=== PATIENT | male | born 1955 | race Caucasian/White ===

== ENCOUNTER 2020-08-22 12:45 | Inpatient (IN) ==
[2020-08-22] MEDS ORDERED: NON-FORMULARY MEDICATION 1 EACH EACH (Vancomycin 1,500 MG/265 ML Iv.Soln) IVPB SCH (21:15)
[2020-08-22] MEDS ORDERED: (Diclofenac Sodium [Voltaren] 100 GM Gel..Gram.) TP PRN (21:18)
[2020-08-22] MEDS ORDERED: Famotidine 20 MG TABLET PO PRN (21:18)
[2020-08-23] MEDS: Metoprolol XL (24 HR) Succ 50 MG TAB.ER.24H PO SCH (08:10)
[2020-08-23] MEDS: Aspirin 81 MG TAB.CHEW PO SCH (08:10)
[2020-08-23] MEDS: *HR* Metformin 500 MG TABLET PO SCH ×2 (08:10→19:54)
[2020-08-23] MEDS: Spironolactone 25 MG TABLET PO SCH (08:11)
[2020-08-23] MEDS: Gabapentin 300 MG CAPSULE PO SCH ×3 (08:11→19:54)
[2020-08-23] MEDS ORDERED: Fluconazole 100 MG TABLET PO SCH (09:00)
[2020-08-23] MEDS ORDERED: Furosemide 20 MG TABLET PO SCH (09:00)
[2020-08-23] MEDS ORDERED: Vancomycin 1,500 MG/265 ML IV.SOLN IVPB SCH (09:00)
[2020-08-23] MEDS: *HR* Glimepiride 2 MG TABLET PO SCH (09:33)
[2020-08-23] MEDS: Vancomycin 1,500 MG/265 ML IV.SOLN IVPB SCH (11:42)
[2020-08-23] MEDS ORDERED: hydrALAZINE 25 MG TABLET PO PRN (16:43)
[2020-08-24] MEDS: Gabapentin 300 MG CAPSULE PO SCH ×3 (07:42→20:23)
[2020-08-24] MEDS: *HR* Glimepiride 2 MG TABLET PO SCH (07:42)
[2020-08-24] MEDS: Spironolactone 25 MG TABLET PO SCH (07:42)
[2020-08-24] MEDS: *HR* Metformin 500 MG TABLET PO SCH ×2 (07:43→20:23)
[2020-08-24] MEDS: Metoprolol XL (24 HR) Succ 50 MG TAB.ER.24H PO SCH (07:43)
[2020-08-24] MEDS: Aspirin 81 MG TAB.CHEW PO SCH (07:43)
[2020-08-24 10:07] LABS: Hematocrit 42.4 % (37.5-50.1); Mean Corpuscular Hemoglobin 31.8 pg (28.0-33.3); Mean Corpuscular Volume 96.4 fL (83.0-100.0); Mean Platelet Volume 13.4 fL (9.4-12.4); Platelet Count 104 K/mcL (140-400); Red Cell Distribution Width 20.2 % (11.5-14.5); White Blood Count 9.5 K/mcL (4.3-11.1)
[2020-08-24 10:23] LABS: BUN/Creatinine Ratio 21 (6-26); Bilirubin,Direct 1.1 mg/dL (0.0-0.2); Bilirubin,Total 2.1 mg/dL (0.3-1.0); Blood Urea Nitrogen 30 mg/dL (8-23); Carbon Dioxide 19 mEq/L (23-29); Chloride 108 mEq/L (98-107); Globulin 3.1 g/dL (2.4-3.5); Glucose 155 mg/dL (70-105); Osmolality,Calculated 295 (280-300); Potassium 3.5 mEq/L (3.5-5.1); Sodium 138 mEq/L (136-145); Total Protein 6.1 g/dL (6.4-8.9); eGFR For African Americans > 60 (> 60); eGFR For Non-African Americans 50 (> 60)
[2020-08-24] MEDS: Vancomycin 1,500 MG/265 ML IV.SOLN IVPB SCH (11:00)
[2020-08-25] MEDS: *HR* Metformin 500 MG TABLET PO SCH ×2 (08:55→20:30)
[2020-08-25] MEDS: Aspirin 81 MG TAB.CHEW PO SCH (08:56)
[2020-08-25] MEDS: *HR* Glimepiride 2 MG TABLET PO SCH (08:56)
[2020-08-25] MEDS: Gabapentin 300 MG CAPSULE PO SCH ×3 (08:56→20:30)
[2020-08-25] MEDS: Metoprolol XL (24 HR) Succ 50 MG TAB.ER.24H PO SCH (08:56)
[2020-08-25] MEDS: Spironolactone 25 MG TABLET PO SCH (08:56)
[2020-08-25] MEDS: Vancomycin 1,500 MG/265 ML IV.SOLN IVPB SCH (11:41)
[2020-08-26] MEDS: Spironolactone 25 MG TABLET PO SCH (08:53)
[2020-08-26] MEDS: *HR* Glimepiride 2 MG TABLET PO SCH (08:53)
[2020-08-26] MEDS: *HR* Metformin 500 MG TABLET PO SCH ×2 (08:53→21:06)
[2020-08-26] MEDS: Aspirin 81 MG TAB.CHEW PO SCH (08:53)
[2020-08-26] MEDS: Metoprolol XL (24 HR) Succ 50 MG TAB.ER.24H PO SCH (08:53)
[2020-08-26] MEDS: Gabapentin 300 MG CAPSULE PO SCH ×3 (08:53→21:06)
[2020-08-26 09:57] LABS: BUN/Creatinine Ratio 15 (6-26); Blood Urea Nitrogen 18 mg/dL (8-23); Calcium 7.9 mg/dL (8.6-10.3); Carbon Dioxide 27 mEq/L (23-29); Chloride 106 mEq/L (98-107); Glucose 127 mg/dL (70-105); Osmolality,Calculated 297 (280-300); Sodium 142 mEq/L (136-145); eGFR For African Americans > 60 (> 60); eGFR For Non-African Americans > 60 (> 60)
[2020-08-26 10:35] LABS: Platelet Estimate Decreased (Normal)
[2020-08-26 10:36] LABS: Hematocrit 42.1 % (37.5-50.1); Hemoglobin 13.9 g/dL (12.9-16.9); Mean Corpuscular Hemoglobin 31.5 pg (28.0-33.3); Mean Corpuscular Volume 95.5 fL (83.0-100.0); Red Blood Count 4.41 M/mcL (4.19-5.50); White Blood Count 6.7 K/mcL (4.3-11.1)
[2020-08-26 10:37] LABS: Mean Platelet Volume 13.1 fL (9.4-12.4); Platelet Count 81 K/mcL (140-400); Red Cell Distribution Width 19.8 % (11.5-14.5)
[2020-08-26 10:38] LABS: Basophils % 0.4 %; Eosinophils # 0.4 K/mcL (0.0-0.6); Eosinophils % 6.3 %; Immature Granulocytes % 0.7 % (0-4); Lymphocytes # 0.8 K/mcL (0.6-4.6); Lymphocytes % 11.5 %; Monocytes # 0.5 K/mcL (0.0-1.3); Segmented Neutrophils % 74.1 %
[2020-08-26] MEDS: Vancomycin 1,500 MG/265 ML IV.SOLN IVPB SCH (12:03)
[2020-08-27] MEDS: Spironolactone 25 MG TABLET PO SCH (08:22)
[2020-08-27] MEDS: *HR* Metformin 500 MG TABLET PO SCH ×2 (08:22→15:02)
[2020-08-27] MEDS: *HR* Glimepiride 4 MG TABLET PO SCH (08:22)
[2020-08-27] MEDS: Metoprolol XL (24 HR) Succ 50 MG TAB.ER.24H PO SCH (08:23)
[2020-08-27] MEDS: Gabapentin 300 MG CAPSULE PO SCH ×3 (08:23→20:42)
[2020-08-27] MEDS: Aspirin 81 MG TAB.CHEW PO SCH (08:23)
[2020-08-27] MEDS: Vancomycin 1,500 MG/265 ML IV.SOLN IVPB SCH (10:39)
[2020-08-27] MEDS: Acetaminophen 325 MG TABLET PO PRN (22:15)
[2020-08-27] MEDS: Melatonin 3 MG TABLET PO PRN (22:46)
[2020-08-28] MEDS: *HR* Metformin 500 MG TABLET PO SCH ×2 (07:47→16:47)
[2020-08-28] MEDS: Spironolactone 25 MG TABLET PO SCH (08:17)
[2020-08-28] MEDS: Aspirin 81 MG TAB.CHEW PO SCH (08:17)
[2020-08-28] MEDS: Acetaminophen 325 MG TABLET PO PRN (08:18)
[2020-08-28] MEDS: *HR* Glimepiride 4 MG TABLET PO SCH (08:18)
[2020-08-28] MEDS: Gabapentin 300 MG CAPSULE PO SCH ×3 (08:18→20:33)
[2020-08-28] MEDS: Metoprolol XL (24 HR) Succ 50 MG TAB.ER.24H PO SCH (08:19)
[2020-08-28] MEDS: Vancomycin 1,500 MG/265 ML IV.SOLN IVPB SCH (10:44)
[2020-08-28] MEDS ORDERED: Sennosides/Docusate Sodium TABLET PO PRN (13:45)
[2020-08-28] MEDS: Melatonin 3 MG TABLET PO PRN (20:33)
[2020-08-29] MEDS: *HR* Metformin 500 MG TABLET PO SCH ×2 (07:30→16:07)
[2020-08-29] MEDS: Metoprolol XL (24 HR) Succ 50 MG TAB.ER.24H PO SCH (07:30)
[2020-08-29] MEDS: Gabapentin 300 MG CAPSULE PO SCH ×3 (07:30→20:04)
[2020-08-29] MEDS: Spironolactone 25 MG TABLET PO SCH (07:30)
[2020-08-29] MEDS: Aspirin 81 MG TAB.CHEW PO SCH (07:30)
[2020-08-29] MEDS: *HR* Glimepiride 4 MG TABLET PO SCH (07:30)
[2020-08-29] MEDS: Vancomycin 1,500 MG/265 ML IV.SOLN IVPB SCH (11:25)
[2020-08-29] MEDS: Acetaminophen 325 MG TABLET PO PRN (20:03)
[2020-08-30] MEDS: *HR* Metformin 500 MG TABLET PO SCH ×2 (08:16→16:18)
[2020-08-30] MEDS: *HR* Glimepiride 4 MG TABLET PO SCH (08:16)
[2020-08-30] MEDS: Spironolactone 25 MG TABLET PO SCH (08:17)
[2020-08-30] MEDS: Aspirin 81 MG TAB.CHEW PO SCH (08:17)
[2020-08-30] MEDS: Gabapentin 300 MG CAPSULE PO SCH ×3 (08:17→19:53)
[2020-08-30] MEDS: Metoprolol XL (24 HR) Succ 50 MG TAB.ER.24H PO SCH (08:17)
[2020-08-30] MEDS: Vancomycin 1,500 MG/265 ML IV.SOLN IVPB SCH (11:07)
[2020-08-31] MEDS: Metoprolol XL (24 HR) Succ 50 MG TAB.ER.24H PO SCH (09:34)
[2020-08-31] MEDS: *HR* Glimepiride 4 MG TABLET PO SCH (09:35)
[2020-08-31] MEDS: Aspirin 81 MG TAB.CHEW PO SCH (09:35)
[2020-08-31] MEDS: *HR* Metformin 500 MG TABLET PO SCH ×2 (09:35→16:29)
[2020-08-31] MEDS: Spironolactone 25 MG TABLET PO SCH (09:36)
[2020-08-31] MEDS: Gabapentin 300 MG CAPSULE PO SCH ×3 (09:36→20:20)
[2020-08-31] MEDS: Vancomycin 1,500 MG/265 ML IV.SOLN IVPB SCH (12:10)
[2020-09-01] MEDS: *HR* Metformin 500 MG TABLET PO SCH ×2 (07:57→17:25)
[2020-09-01] MEDS: Aspirin 81 MG TAB.CHEW PO SCH (07:57)
[2020-09-01] MEDS: Metoprolol XL (24 HR) Succ 50 MG TAB.ER.24H PO SCH (07:57)
[2020-09-01] MEDS: Spironolactone 25 MG TABLET PO SCH (07:57)
[2020-09-01] MEDS: *HR* Glimepiride 4 MG TABLET PO SCH (07:57)
[2020-09-01] MEDS: Gabapentin 300 MG CAPSULE PO SCH ×3 (07:58→20:56)
[2020-09-01] MEDS: Vancomycin 1,500 MG/265 ML IV.SOLN IVPB SCH (12:02)
[2020-09-01] MEDS: Acetaminophen 325 MG TABLET PO PRN (14:22)
[2020-09-02] MEDS: Metoprolol XL (24 HR) Succ 50 MG TAB.ER.24H PO SCH (07:54)
[2020-09-02] MEDS: *HR* Metformin 500 MG TABLET PO SCH ×2 (07:54→15:40)
[2020-09-02] MEDS: Gabapentin 300 MG CAPSULE PO SCH ×3 (07:55→22:09)
[2020-09-02] MEDS: Spironolactone 25 MG TABLET PO SCH (07:55)
[2020-09-02] MEDS: *HR* Glimepiride 4 MG TABLET PO SCH (07:55)
[2020-09-02] MEDS: Aspirin 81 MG TAB.CHEW PO SCH (07:55)
[2020-09-03 07:23] LABS: BUN/Creatinine Ratio 20 (6-26); Blood Urea Nitrogen 23 mg/dL (8-23); eGFR For African Americans > 60 (> 60); eGFR For Non-African Americans > 60 (> 60)
[2020-09-03] MEDS: Metoprolol XL (24 HR) Succ 50 MG TAB.ER.24H PO SCH (08:40)
[2020-09-03] MEDS: Spironolactone 25 MG TABLET PO SCH (08:40)
[2020-09-03] MEDS: Gabapentin 300 MG CAPSULE PO SCH ×3 (08:41→21:03)
[2020-09-03] MEDS: *HR* Metformin 500 MG TABLET PO SCH ×2 (08:41→15:58)
[2020-09-03] MEDS: *HR* Glimepiride 4 MG TABLET PO SCH (08:41)
[2020-09-03] MEDS: Aspirin 81 MG TAB.CHEW PO SCH (08:41)
[2020-09-03 15:47] LABS: Basophils # 0.1 K/mcL (0.0-0.2); Eosinophils # 0.5 K/mcL (0.0-0.6); Eosinophils % 10.9 %; Hematocrit 36.1 % (37.5-50.1); Hemoglobin 11.7 g/dL (12.9-16.9); Immature Granulocytes % 0.4 % (0-4); Lymphocytes # 1.1 K/mcL (0.6-4.6); Lymphocytes % 23.5 %; Mean Corpuscular HGB Conc 32.4 g/dL (31.6-35.5); Mean Corpuscular Hemoglobin 31.6 pg (28.0-33.3); Mean Corpuscular Volume 97.6 fL (83.0-100.0); Mean Platelet Volume 10.8 fL (9.4-12.4); Monocytes # 0.7 K/mcL (0.0-1.3); Monocytes % 13.6 %; Neutrophils # 2.5 K/mcL (1.6-8.9); Platelet Count 215 K/mcL (140-400); Red Cell Distribution Width 18.2 % (11.5-14.5); Segmented Neutrophils % 50.6 %; White Blood Count 4.9 K/mcL (4.3-11.1)
[2020-09-03] MEDS: Vancomycin 1,250 MG/262.5 ML IV.SOLN IVPB SCH (15:57)
[2020-09-03] MEDS: Melatonin 3 MG TABLET PO PRN (21:03)
[2020-09-03] MEDS: Acetaminophen 325 MG TABLET PO PRN (23:03)
[2020-09-04 08:35] LABS: Basophils # 0.1 K/mcL (0.0-0.2); Basophils % 1.1 %; Eosinophils # 0.5 K/mcL (0.0-0.6); Hematocrit 36.6 % (37.5-50.1); Hemoglobin 11.7 g/dL (12.9-16.9); Immature Granulocytes % 0.7 % (0-4); Lymphocytes # 1.3 K/mcL (0.6-4.6); Lymphocytes % 28.4 %; Mean Corpuscular Hemoglobin 31.3 pg (28.0-33.3); Mean Corpuscular Volume 97.9 fL (83.0-100.0); Mean Platelet Volume 11.1 fL (9.4-12.4); Monocytes # 0.5 K/mcL (0.0-1.3); Monocytes % 11.8 %; Neutrophils # 2.2 K/mcL (1.6-8.9); Platelet Count 210 K/mcL (140-400); Red Blood Count 3.74 M/mcL (4.19-5.50); White Blood Count 4.5 K/mcL (4.3-11.1)
[2020-09-04 08:55] LABS: Alanine Aminotransferase 18 Units/L (7-52); Albumin 3.4 g/dL (3.5-5.7); Alkaline Phosphatase 117 Units/L (34-104); Aspartate Amino Transferase 24 Units/L (13-39); BUN/Creatinine Ratio 22 (6-26); Bilirubin,Total 1.6 mg/dL (0.3-1.0); Blood Urea Nitrogen 25 mg/dL (8-23); Calcium 7.9 mg/dL (8.6-10.3); Carbon Dioxide 31 mEq/L (23-29); Chloride 94 mEq/L (98-107); Glucose 93 mg/dL (70-105); Osmolality,Calculated 292 (280-300); Potassium 3.1 mEq/L (3.5-5.1); Sodium 139 mEq/L (136-145); eGFR For African Americans > 60 (> 60); eGFR For Non-African Americans > 60 (> 60)
[2020-09-04 09:03] LABS: Albumin/Globulin Ratio 1.1 (1.1-2.2); Globulin 3.1 g/dL (2.4-3.5); Total Protein 6.5 g/dL (6.4-8.9)
[2020-09-04] MEDS: *HR* Metformin 500 MG TABLET PO SCH ×2 (10:21→17:08)
[2020-09-04] MEDS: Spironolactone 25 MG TABLET PO SCH (10:21)
[2020-09-04] MEDS: Aspirin 81 MG TAB.CHEW PO SCH (10:22)
[2020-09-04] MEDS: Gabapentin 300 MG CAPSULE PO SCH ×3 (10:22→20:06)
[2020-09-04] MEDS: Metoprolol XL (24 HR) Succ 50 MG TAB.ER.24H PO SCH (10:22)
[2020-09-04] MEDS: *HR* Glimepiride 4 MG TABLET PO SCH ×2 (10:23→12:04)
[2020-09-04] MEDS: Vancomycin 1,250 MG/262.5 ML IV.SOLN IVPB SCH (14:56)
[2020-09-04] MEDS: Melatonin 3 MG TABLET PO PRN (22:12)
[2020-09-05] MEDS: *HR* Metformin 500 MG TABLET PO SCH ×2 (08:33→15:15)
[2020-09-05] MEDS: Metoprolol XL (24 HR) Succ 50 MG TAB.ER.24H PO SCH (08:33)
[2020-09-05] MEDS: Gabapentin 300 MG CAPSULE PO SCH ×3 (08:33→20:35)
[2020-09-05] MEDS: *HR* Glimepiride 4 MG TABLET PO SCH (08:34)
[2020-09-05] MEDS: Aspirin 81 MG TAB.CHEW PO SCH (08:34)
[2020-09-05] MEDS: Spironolactone 25 MG TABLET PO SCH (08:34)
[2020-09-05] MEDS ORDERED: Spironolactone 25 MG TABLET PO ONE (10:17)
[2020-09-05] MEDS ORDERED: Furosemide 20 MG/2 ML VIAL IVP ONE (10:17)
[2020-09-05] MEDS ORDERED: Albuterol 2.5 MG/3 ML NEBULIZER IH ONE (10:19)
[2020-09-05] MEDS: Vancomycin 1,250 MG/262.5 ML IV.SOLN IVPB SCH (15:14)
[2020-09-05] MEDS: Insulin LISPRO 300 UNITS/3 ML VIAL SUBQ SCH (17:52)
[2020-09-05] MEDS: Melatonin 3 MG TABLET PO PRN (20:35)
[2020-09-05] MEDS: Acetaminophen 325 MG TABLET PO PRN (20:37)
[2020-09-05] MEDS ORDERED: Insulin LISPRO 300 UNITS/3 ML VIAL SUBQ SCH (21:00)
[2020-09-06] MEDS: Insulin LISPRO 300 UNITS/3 ML VIAL SUBQ SCH ×4 (07:41→16:37)
[2020-09-06] MEDS ORDERED: D5% in Water 1,000 ML IVC PRN (07:58)
[2020-09-06] MEDS ORDERED: Dextrose Gel 15 GM/37.5 ML TUBE PO PRN ×2 (07:58)
[2020-09-06] MEDS ORDERED: *HR* Dextrose 50 % in Water (Vial) 50 ML VIAL IVP PRN (07:58)
[2020-09-06] MEDS ORDERED: Dextrose Gel 15 GM/37.5 ML TUBE PO ONE (08:01)
[2020-09-06] MEDS: Gabapentin 300 MG CAPSULE PO SCH ×3 (08:50→15:23)
[2020-09-06] MEDS: *HR* Metformin 500 MG TABLET PO SCH ×2 (08:51→15:39)
[2020-09-06] MEDS: Metoprolol XL (24 HR) Succ 50 MG TAB.ER.24H PO SCH (08:51)
[2020-09-06] MEDS: *HR* Glimepiride 4 MG TABLET PO SCH (08:51)
[2020-09-06] MEDS: Aspirin 81 MG TAB.CHEW PO SCH (08:51)
[2020-09-06] MEDS ORDERED: Isovue-370 500 ML BOTTLE IVP ONE (11:37)
[2020-09-06] MEDS ORDERED: Furosemide 40 MG/4 ML VIAL IVP ONE (11:39)
[2020-09-06 12:12] LABS: Basophils # 0.1 K/mcL (0.0-0.2); Eosinophils # 0.1 K/mcL (0.0-0.6); Eosinophils % 2.8 %; Hematocrit 36.6 % (37.5-50.1); Immature Granulocytes % 0.6 % (0-4); Lymphocytes # 1.1 K/mcL (0.6-4.6); Lymphocytes % 21.5 %; Mean Corpuscular HGB Conc 32.8 g/dL (31.6-35.5); Mean Corpuscular Hemoglobin 31.9 pg (28.0-33.3); Mean Corpuscular Volume 97.3 fL (83.0-100.0); Mean Platelet Volume 11.1 fL (9.4-12.4); Monocytes # 0.5 K/mcL (0.0-1.3); Monocytes % 9.5 %; Neutrophils # 3.2 K/mcL (1.6-8.9); Platelet Count 271 K/mcL (140-400); Red Blood Count 3.76 M/mcL (4.19-5.50); Red Cell Distribution Width 17.9 % (11.5-14.5); Segmented Neutrophils % 64.6 %
[2020-09-06 12:46] LABS: Albumin 3.5 g/dL (3.5-5.7); Bilirubin,Direct 0.8 mg/dL (0.0-0.2); Bilirubin,Indirect 0.8 mg/dL (0.0-1.0); Bilirubin,Total 1.6 mg/dL (0.3-1.0); Globulin 3.4 g/dL (2.4-3.5); Total Protein 6.9 g/dL (6.4-8.9)
[2020-09-06 12:48] LABS: Potassium 3.9 mEq/L (3.5-5.1)
[2020-09-06 13:52] LABS: INR 1.7; Prothrombin Time 19.4 Seconds (9.4-12.1)
[2020-09-06] MEDS ORDERED: *HR* Heparin 5,000 UNIT/ML VIAL IVP PRN ×2 (14:09)
[2020-09-06] MEDS ORDERED: *HR* Heparin 5,000 UNIT/ML VIAL IVP ONE (14:09)
[2020-09-06] MEDS ORDERED: Heparin 25,000UNIT/250ML 1/2NS 25,000 UNIT/250 ML IV.SOLN IVC SCH (14:15)
[2020-09-06 14:32] VITALS: BP 102/70
[2020-09-06] MEDS: Vancomycin 1,250 MG/262.5 ML IV.SOLN IVPB SCH (15:24)
[2020-09-06 15:29] LABS: Hematocrit 34.6 % (37.5-50.1); Hemoglobin 11.4 g/dL (12.9-16.9); Mean Corpuscular HGB Conc 32.9 g/dL (31.6-35.5); Mean Corpuscular Hemoglobin 32.3 pg (28.0-33.3); Platelet Count 266 K/mcL (140-400); Red Blood Count 3.53 M/mcL (4.19-5.50); Red Cell Distribution Width 18.2 % (11.5-14.5); White Blood Count 6.1 K/mcL (4.3-11.1)
[2020-09-06 15:44] LABS: Heparin anti-factor XA UFH < 0.04 IU/mL (0.30-0.70); INR 1.7; Prothrombin Time 19.2 Seconds (9.4-12.1)
[2020-09-07] MEDS ORDERED: Spironolactone 25 MG TABLET PO SCH (09:00)
[2020-09-07] MEDS ORDERED: Furosemide 20 MG TABLET PO SCH (09:00)
== END 2020-09-06 17:32 | disposition short-term general hospital (02) | DRG 291 ==
LOC: INPPIK 18:21
PROVIDERS: ADMIT Family Medicine; ATTEND Family Medicine

== ENCOUNTER 2021-02-25 17:34 | Inpatient (IN) ==
[2021-02-25] MEDS ORDERED: DAPTOMYCIN 350 MG IV SCH (17:45)
[2021-02-25] MEDS ORDERED: *HR* Dextrose 50 % in Water (Syg) 50 ML SYRINGE IVP PRN (17:47)
[2021-02-25] MEDS ORDERED: Dextrose Gel 15 GM/37.5 ML TUBE PO PRN ×2 (17:47)
[2021-02-25] MEDS ORDERED: D5% in Water 1,000 ML IVC PRN (17:47)
[2021-02-25] MEDS: Insulin LISPRO 300 UNITS/3 ML VIAL SUBQ SCH (23:27)
[2021-02-25] MEDS: Gabapentin 300 MG CAPSULE PO SCH (23:33)
[2021-02-26 08:04] LABS: Basophils % 0.3 %; Eosinophils # 0.3 K/mcL (0.0-0.6); Eosinophils % 2.4 %; Hematocrit 26.1 % (37.5-50.1); Immature Granulocytes % 1.8 % (0-4); Lymphocytes # 0.9 K/mcL (0.6-4.6); Mean Corpuscular HGB Conc 30.7 g/dL (31.6-35.5); Mean Corpuscular Hemoglobin 29.2 pg (28.0-33.3); Mean Corpuscular Volume 95.3 fL (83.0-100.0); Mean Platelet Volume 9.2 fL (9.4-12.4); Monocytes # 0.5 K/mcL (0.0-1.3); Monocytes % 3.9 %; Platelet Count 384 K/mcL (140-400); Red Blood Count 2.74 M/mcL (4.19-5.50); Red Cell Distribution Width 15.4 % (11.5-14.5); Segmented Neutrophils % 84.6 %; White Blood Count 12.7 K/mcL (4.3-11.1)
[2021-02-26] MEDS ORDERED: Famotidine 20 MG TABLET PO PRN (09:00)
[2021-02-26 09:15] LABS: BUN/Creatinine Ratio 13 (6-26); Blood Urea Nitrogen 16 mg/dL (8-23); Carbon Dioxide 23 mEq/L (23-29); Chloride 103 mEq/L (98-107); Glucose 138 mg/dL (70-105); Osmolality,Calculated 281 (280-300); Potassium 4.2 mEq/L (3.5-5.1); Sodium 134 mEq/L (136-145); eGFR For African Americans > 60 (> 60); eGFR For Non-African Americans > 60 (> 60)
[2021-02-26 09:16] LABS: Neutrophils # 10.7 K/mcL (1.6-8.9)
[2021-02-26] MEDS: Insulin LISPRO 300 UNITS/3 ML VIAL SUBQ SCH ×4 (09:20→20:38)
[2021-02-26] MEDS: *HR* Glimepiride 4 MG TABLET PO SCH (10:49)
[2021-02-26] MEDS: Furosemide 40 MG TABLET PO SCH ×2 (10:49→17:22)
[2021-02-26] MEDS: Metoprolol XL (24 HR) Succ 50 MG TAB.ER.24H PO SCH (10:49)
[2021-02-26] MEDS: Spironolactone 25 MG TABLET PO SCH (10:49)
[2021-02-26] MEDS: Gabapentin 300 MG CAPSULE PO SCH ×3 (10:49→20:39)
[2021-02-26] MEDS: Aspirin Enteric Coated 81 MG Tablet PO SCH (10:49)
[2021-02-26] MEDS: Ascorbic Acid 500 MG TABLET PO SCH (10:49)
[2021-02-26] MEDS: DAPTOmycin 700 MG in 0.9 % Sodium Chloride 100 ML IVPB SCH (11:06)
[2021-02-26] MEDS: *HR* OxyCODONE/APAP 10/325 TABLET PO PRN (17:36)
[2021-02-26] MEDS: Lactulose Oral Soln 20 GM/30 ML UDC PO SCH (20:39)
[2021-02-27] MEDS: *HR* OxyCODONE/APAP 10/325 TABLET PO PRN ×2 (01:16→10:37)
[2021-02-27] MEDS: *HR* Enoxaparin 40 MG/0.4 ML SYRINGE SQ SCH (05:45)
[2021-02-27 07:51] LABS: INR 1.5; Prothrombin Time 17.3 Seconds (9.4-12.1)
[2021-02-27] MEDS: Insulin LISPRO 300 UNITS/3 ML VIAL SUBQ SCH ×4 (08:24→20:19)
[2021-02-27] MEDS: *HR* Glimepiride 4 MG TABLET PO SCH (08:35)
[2021-02-27] MEDS: Lactulose Oral Soln 20 GM/30 ML UDC PO SCH ×2 (08:35→20:19)
[2021-02-27] MEDS: Aspirin Enteric Coated 81 MG Tablet PO SCH (08:35)
[2021-02-27] MEDS: Furosemide 40 MG TABLET PO SCH ×2 (08:35→17:11)
[2021-02-27] MEDS: Spironolactone 25 MG TABLET PO SCH (08:35)
[2021-02-27] MEDS: Gabapentin 300 MG CAPSULE PO SCH ×3 (08:36→20:19)
[2021-02-27] MEDS: Metoprolol XL (24 HR) Succ 50 MG TAB.ER.24H PO SCH (08:36)
[2021-02-27] MEDS: Ascorbic Acid 500 MG TABLET PO SCH (08:37)
[2021-02-27 08:38] LABS: Alanine Aminotransferase 13 Units/L (7-52); Albumin 2.5 g/dL (3.5-5.7); Albumin/Globulin Ratio 0.7 (1.1-2.2); Alkaline Phosphatase 100 Units/L (34-104); Aspartate Amino Transferase 22 Units/L (13-39); BUN/Creatinine Ratio 12 (6-26); Bilirubin,Total 0.4 mg/dL (0.3-1.0); Blood Urea Nitrogen 16 mg/dL (8-23); Carbon Dioxide 25 mEq/L (23-29); Chloride 104 mEq/L (98-107); Globulin 3.7 g/dL (2.4-3.5); Glucose 74 mg/dL (70-105); Osmolality,Calculated 284 (280-300); Potassium 3.7 mEq/L (3.5-5.1); Sodium 137 mEq/L (136-145); Total Protein 6.2 g/dL (6.4-8.9); eGFR For African Americans > 60 (> 60); eGFR For Non-African Americans 55 (> 60)
[2021-02-27] MEDS: DAPTOmycin 700 MG in 0.9 % Sodium Chloride 100 ML IVPB SCH (10:13)
[2021-02-28] MEDS: *HR* Enoxaparin 40 MG/0.4 ML SYRINGE SQ SCH (05:21)
[2021-02-28] MEDS: Insulin LISPRO 300 UNITS/3 ML VIAL SUBQ SCH ×4 (07:54→21:01)
[2021-02-28] MEDS: Lactulose Oral Soln 20 GM/30 ML UDC PO SCH ×2 (08:06→19:59)
[2021-02-28] MEDS: Ascorbic Acid 500 MG TABLET PO SCH (08:07)
[2021-02-28] MEDS: *HR* Glimepiride 4 MG TABLET PO SCH (08:07)
[2021-02-28] MEDS: Spironolactone 25 MG TABLET PO SCH (08:07)
[2021-02-28] MEDS: Furosemide 40 MG TABLET PO SCH ×2 (08:07→15:56)
[2021-02-28] MEDS: Aspirin Enteric Coated 81 MG Tablet PO SCH (08:08)
[2021-02-28] MEDS: Metoprolol XL (24 HR) Succ 50 MG TAB.ER.24H PO SCH (08:08)
[2021-02-28] MEDS: Gabapentin 300 MG CAPSULE PO SCH ×3 (08:08→19:59)
[2021-02-28] MEDS: DAPTOmycin 700 MG in 0.9 % Sodium Chloride 100 ML IVPB SCH (10:20)
[2021-02-28] MEDS: *HR* OxyCODONE/APAP 10/325 TABLET PO PRN (10:36)
[2021-02-28] MEDS: predniSONE 20 MG TABLET PO SCH (10:36)
[2021-03-01] MEDS: *HR* Enoxaparin 40 MG/0.4 ML SYRINGE SQ SCH (04:57)
[2021-03-01 07:46] LABS: Hematocrit 25.8 % (37.5-50.1); Hemoglobin 8.1 g/dL (12.9-16.9); Mean Corpuscular HGB Conc 31.4 g/dL (31.6-35.5); Mean Corpuscular Hemoglobin 28.9 pg (28.0-33.3); Mean Corpuscular Volume 92.1 fL (83.0-100.0); Platelet Count 469 K/mcL (140-400); White Blood Count 9.2 K/mcL (4.3-11.1)
[2021-03-01 08:15] LABS: BUN/Creatinine Ratio 14 (6-26); Blood Urea Nitrogen 20 mg/dL (8-23); Calcium 8.1 mg/dL (8.6-10.3); Carbon Dioxide 27 mEq/L (23-29); Chloride 103 mEq/L (98-107); Glucose 116 mg/dL (70-105); Osmolality,Calculated 290 (280-300); Potassium 3.7 mEq/L (3.5-5.1); Sodium 138 mEq/L (136-145); eGFR For African Americans > 60 (> 60); eGFR For Non-African Americans 50 (> 60)
[2021-03-01] MEDS: Metoprolol XL (24 HR) Succ 50 MG TAB.ER.24H PO SCH (08:46)
[2021-03-01] MEDS: Furosemide 40 MG TABLET PO SCH ×2 (08:46→16:22)
[2021-03-01] MEDS: Lactulose Oral Soln 20 GM/30 ML UDC PO SCH ×2 (08:46→19:53)
[2021-03-01] MEDS: Spironolactone 25 MG TABLET PO SCH (08:46)
[2021-03-01] MEDS: predniSONE 20 MG TABLET PO SCH (08:46)
[2021-03-01] MEDS: *HR* OxyCODONE/APAP 10/325 TABLET PO PRN ×2 (08:47→16:23)
[2021-03-01] MEDS: Aspirin Enteric Coated 81 MG Tablet PO SCH (08:47)
[2021-03-01] MEDS: Ascorbic Acid 500 MG TABLET PO SCH (08:47)
[2021-03-01] MEDS: *HR* Glimepiride 4 MG TABLET PO SCH (08:48)
[2021-03-01] MEDS: Gabapentin 300 MG CAPSULE PO SCH ×3 (08:48→19:52)
[2021-03-01] MEDS: Insulin LISPRO 300 UNITS/3 ML VIAL SUBQ SCH ×4 (08:49→19:53)
[2021-03-01] MEDS: DAPTOmycin 700 MG in 0.9 % Sodium Chloride 100 ML IVPB SCH (08:49)
[2021-03-02] MEDS: *HR* OxyCODONE/APAP 10/325 TABLET PO PRN ×3 (01:05→17:04)
[2021-03-02] MEDS: *HR* Enoxaparin 40 MG/0.4 ML SYRINGE SQ SCH (05:20)
[2021-03-02] MEDS: Insulin LISPRO 300 UNITS/3 ML VIAL SUBQ SCH ×4 (07:58→20:16)
[2021-03-02] MEDS: Lactulose Oral Soln 20 GM/30 ML UDC PO SCH ×2 (08:05→20:09)
[2021-03-02] MEDS: predniSONE 20 MG TABLET PO SCH (08:05)
[2021-03-02] MEDS: Gabapentin 300 MG CAPSULE PO SCH ×3 (08:06→20:09)
[2021-03-02] MEDS: Metoprolol XL (24 HR) Succ 50 MG TAB.ER.24H PO SCH (08:06)
[2021-03-02] MEDS: *HR* Glimepiride 4 MG TABLET PO SCH (08:06)
[2021-03-02] MEDS: Ascorbic Acid 500 MG TABLET PO SCH (08:06)
[2021-03-02] MEDS: Aspirin Enteric Coated 81 MG Tablet PO SCH (08:06)
[2021-03-02] MEDS: Spironolactone 25 MG TABLET PO SCH (08:07)
[2021-03-02] MEDS: Furosemide 40 MG TABLET PO SCH ×2 (08:07→17:04)
[2021-03-02] MEDS: DAPTOmycin 700 MG in 0.9 % Sodium Chloride 100 ML IVPB SCH (09:10)
[2021-03-03] MEDS: *HR* OxyCODONE/APAP 10/325 TABLET PO PRN ×3 (03:42→21:50)
[2021-03-03] MEDS: *HR* Enoxaparin 40 MG/0.4 ML SYRINGE SQ SCH (05:06)
[2021-03-03 07:54] LABS: Basophils % 0.5 %; Eosinophils % 0.2 %; Hematocrit 26.3 % (37.5-50.1); Hemoglobin 8.1 g/dL (12.9-16.9); Immature Granulocytes % 0.7 % (0-4); Lymphocytes # 1.4 K/mcL (0.6-4.6); Lymphocytes % 16.7 %; Mean Corpuscular HGB Conc 30.8 g/dL (31.6-35.5); Mean Corpuscular Hemoglobin 28.7 pg (28.0-33.3); Mean Corpuscular Volume 93.3 fL (83.0-100.0); Monocytes # 0.5 K/mcL (0.0-1.3); Monocytes % 5.7 %; Neutrophils # 6.4 K/mcL (1.6-8.9); Platelet Count 521 K/mcL (140-400); Red Blood Count 2.82 M/mcL (4.19-5.50); Red Cell Distribution Width 15.4 % (11.5-14.5); Segmented Neutrophils % 76.2 %; White Blood Count 8.4 K/mcL (4.3-11.1)
[2021-03-03] MEDS: Lactulose Oral Soln 20 GM/30 ML UDC PO SCH ×2 (08:15→21:47)
[2021-03-03 08:16] LABS: BUN/Creatinine Ratio 17 (6-26); Blood Urea Nitrogen 29 mg/dL (8-23); Creatine Kinase 65 Units/L (30-223); eGFR For African Americans 48 (> 60); eGFR For Non-African Americans 40 (> 60)
[2021-03-03] MEDS: Gabapentin 300 MG CAPSULE PO SCH ×3 (08:16→21:47)
[2021-03-03] MEDS: Metoprolol XL (24 HR) Succ 50 MG TAB.ER.24H PO SCH (08:16)
[2021-03-03] MEDS: Aspirin Enteric Coated 81 MG Tablet PO SCH (08:16)
[2021-03-03] MEDS: Spironolactone 25 MG TABLET PO SCH (08:16)
[2021-03-03] MEDS: Ascorbic Acid 500 MG TABLET PO SCH (08:16)
[2021-03-03] MEDS: Furosemide 40 MG TABLET PO SCH ×2 (08:17→16:46)
[2021-03-03] MEDS: predniSONE 20 MG TABLET PO SCH (08:17)
[2021-03-03] MEDS: *HR* Glimepiride 4 MG TABLET PO SCH (08:17)
[2021-03-03] MEDS: DAPTOmycin 700 MG in 0.9 % Sodium Chloride 100 ML IVPB SCH (08:17)
[2021-03-03] MEDS: Insulin LISPRO 300 UNITS/3 ML VIAL SUBQ SCH ×4 (08:18→21:52)
[2021-03-04] MEDS: *HR* Enoxaparin 40 MG/0.4 ML SYRINGE SQ SCH (06:04)
[2021-03-04] MEDS: Ascorbic Acid 500 MG TABLET PO SCH (08:40)
[2021-03-04] MEDS: Metoprolol XL (24 HR) Succ 50 MG TAB.ER.24H PO SCH (08:40)
[2021-03-04] MEDS: Lactulose Oral Soln 20 GM/30 ML UDC PO SCH ×2 (08:40→19:35)
[2021-03-04] MEDS: *HR* OxyCODONE/APAP 10/325 TABLET PO PRN ×2 (08:42→19:47)
[2021-03-04] MEDS: Gabapentin 300 MG CAPSULE PO SCH ×3 (08:42→19:35)
[2021-03-04] MEDS: Furosemide 40 MG TABLET PO SCH ×2 (08:42→16:32)
[2021-03-04] MEDS: Aspirin Enteric Coated 81 MG Tablet PO SCH (08:42)
[2021-03-04] MEDS: predniSONE 20 MG TABLET PO SCH (08:42)
[2021-03-04] MEDS: *HR* Glimepiride 4 MG TABLET PO SCH (08:42)
[2021-03-04] MEDS: Spironolactone 25 MG TABLET PO SCH (08:43)
[2021-03-04] MEDS: Insulin LISPRO 300 UNITS/3 ML VIAL SUBQ SCH ×4 (08:48→19:56)
[2021-03-04] MEDS: DAPTOmycin 700 MG in 0.9 % Sodium Chloride 100 ML IVPB SCH (09:58)
[2021-03-05] MEDS: *HR* Enoxaparin 40 MG/0.4 ML SYRINGE SQ SCH (06:01)
[2021-03-05 07:54] LABS: Basophils # 0.1 K/mcL (0.0-0.2); Basophils % 0.6 %; Eosinophils # 0.1 K/mcL (0.0-0.6); Eosinophils % 1.6 %; Hematocrit 29.4 % (37.5-50.1); Hemoglobin 9.2 g/dL (12.9-16.9); Immature Granulocytes % 2.3 % (0-4); Lymphocytes % 22.3 %; Mean Corpuscular HGB Conc 31.3 g/dL (31.6-35.5); Mean Corpuscular Hemoglobin 29.2 pg (28.0-33.3); Mean Corpuscular Volume 93.3 fL (83.0-100.0); Mean Platelet Volume 8.6 fL (9.4-12.4); Monocytes # 0.6 K/mcL (0.0-1.3); Monocytes % 6.8 %; Neutrophils # 5.9 K/mcL (1.6-8.9); Platelet Count 565 K/mcL (140-400); Red Blood Count 3.15 M/mcL (4.19-5.50); Red Cell Distribution Width 15.7 % (11.5-14.5); Segmented Neutrophils % 66.4 %; White Blood Count 8.9 K/mcL (4.3-11.1)
[2021-03-05 08:12] LABS: Calcium 8.4 mg/dL (8.6-10.3)
[2021-03-05] MEDS: Insulin LISPRO 300 UNITS/3 ML VIAL SUBQ SCH ×4 (08:32→20:08)
[2021-03-05] MEDS: Aspirin Enteric Coated 81 MG Tablet PO SCH (08:50)
[2021-03-05] MEDS: predniSONE 10 MG TABLET PO SCH (08:51)
[2021-03-05] MEDS: Ascorbic Acid 500 MG TABLET PO SCH (08:51)
[2021-03-05] MEDS: *HR* Glimepiride 4 MG TABLET PO SCH (08:51)
[2021-03-05] MEDS: Spironolactone 25 MG TABLET PO SCH (08:51)
[2021-03-05] MEDS: Gabapentin 300 MG CAPSULE PO SCH ×3 (08:51→20:01)
[2021-03-05] MEDS: Furosemide 40 MG TABLET PO SCH ×2 (08:51→17:55)
[2021-03-05] MEDS: *HR* OxyCODONE/APAP 10/325 TABLET PO PRN ×2 (08:52→22:55)
[2021-03-05] MEDS: Metoprolol XL (24 HR) Succ 50 MG TAB.ER.24H PO SCH (08:52)
[2021-03-05] MEDS: Lactulose Oral Soln 20 GM/30 ML UDC PO SCH ×2 (08:53→20:01)
[2021-03-05] MEDS: DAPTOmycin 700 MG in 0.9 % Sodium Chloride 100 ML IVPB SCH (08:53)
[2021-03-06] MEDS: *HR* Enoxaparin 40 MG/0.4 ML SYRINGE SQ SCH (05:54)
[2021-03-06] MEDS: *HR* Glimepiride 4 MG TABLET PO SCH (07:39)
[2021-03-06] MEDS: Aspirin Enteric Coated 81 MG Tablet PO SCH (07:40)
[2021-03-06] MEDS: Lactulose Oral Soln 20 GM/30 ML UDC PO SCH ×2 (07:40→20:29)
[2021-03-06] MEDS: Metoprolol XL (24 HR) Succ 50 MG TAB.ER.24H PO SCH (07:41)
[2021-03-06] MEDS: Gabapentin 300 MG CAPSULE PO SCH ×3 (07:43→20:30)
[2021-03-06] MEDS: Furosemide 40 MG TABLET PO SCH ×2 (07:43→16:00)
[2021-03-06] MEDS: Spironolactone 25 MG TABLET PO SCH (07:43)
[2021-03-06] MEDS: predniSONE 10 MG TABLET PO SCH (07:43)
[2021-03-06] MEDS: Ascorbic Acid 500 MG TABLET PO SCH (07:44)
[2021-03-06] MEDS: Insulin LISPRO 300 UNITS/3 ML VIAL SUBQ SCH ×4 (07:46→20:31)
[2021-03-06] MEDS: DAPTOmycin 700 MG in 0.9 % Sodium Chloride 100 ML IVPB SCH (09:06)
[2021-03-06] MEDS: *HR* OxyCODONE/APAP 10/325 TABLET PO PRN ×2 (12:12→20:29)
[2021-03-07] MEDS: *HR* Enoxaparin 40 MG/0.4 ML SYRINGE SQ SCH (06:58)
[2021-03-07] MEDS: Lactulose Oral Soln 20 GM/30 ML UDC PO SCH ×2 (09:14→20:07)
[2021-03-07] MEDS: Gabapentin 300 MG CAPSULE PO SCH ×3 (09:14→20:06)
[2021-03-07] MEDS: Metoprolol XL (24 HR) Succ 50 MG TAB.ER.24H PO SCH (09:14)
[2021-03-07] MEDS: Aspirin Enteric Coated 81 MG Tablet PO SCH (09:14)
[2021-03-07] MEDS: *HR* Glimepiride 4 MG TABLET PO SCH (09:14)
[2021-03-07] MEDS: Spironolactone 25 MG TABLET PO SCH (09:14)
[2021-03-07] MEDS: Ascorbic Acid 500 MG TABLET PO SCH (09:14)
[2021-03-07] MEDS: predniSONE 10 MG TABLET PO SCH (09:15)
[2021-03-07] MEDS: Furosemide 40 MG TABLET PO SCH ×2 (09:15→16:12)
[2021-03-07] MEDS: Insulin LISPRO 300 UNITS/3 ML VIAL SUBQ SCH ×4 (09:16→20:07)
[2021-03-07] MEDS: DAPTOmycin 700 MG in 0.9 % Sodium Chloride 100 ML IVPB SCH (11:26)
[2021-03-07] MEDS: *HR* OxyCODONE/APAP 10/325 TABLET PO PRN ×2 (12:10→20:07)
[2021-03-08] MEDS: *HR* Enoxaparin 40 MG/0.4 ML SYRINGE SQ SCH (05:38)
[2021-03-08] MEDS: *HR* OxyCODONE/APAP 10/325 TABLET PO PRN ×2 (05:38→19:52)
[2021-03-08] MEDS: Insulin LISPRO 300 UNITS/3 ML VIAL SUBQ SCH ×4 (08:33→19:55)
[2021-03-08] MEDS: Lactulose Oral Soln 20 GM/30 ML UDC PO SCH ×2 (08:57→19:55)
[2021-03-08] MEDS: Ascorbic Acid 500 MG TABLET PO SCH (08:58)
[2021-03-08] MEDS: Aspirin Enteric Coated 81 MG Tablet PO SCH (08:58)
[2021-03-08] MEDS: Metoprolol XL (24 HR) Succ 50 MG TAB.ER.24H PO SCH (08:58)
[2021-03-08] MEDS: Spironolactone 25 MG TABLET PO SCH (08:58)
[2021-03-08] MEDS: Gabapentin 300 MG CAPSULE PO SCH ×3 (08:58→19:52)
[2021-03-08] MEDS: *HR* Glimepiride 4 MG TABLET PO SCH (08:58)
[2021-03-08] MEDS: Furosemide 40 MG TABLET PO SCH ×2 (08:59→17:04)
[2021-03-09] MEDS: *HR* Enoxaparin 40 MG/0.4 ML SYRINGE SQ SCH (06:18)
[2021-03-09] MEDS: *HR* OxyCODONE/APAP 10/325 TABLET PO PRN ×2 (06:18→20:08)
[2021-03-09] MEDS: Insulin LISPRO 300 UNITS/3 ML VIAL SUBQ SCH ×4 (07:29→20:09)
[2021-03-09] MEDS: Gabapentin 300 MG CAPSULE PO SCH ×3 (08:51→20:08)
[2021-03-09] MEDS: Spironolactone 25 MG TABLET PO SCH (08:51)
[2021-03-09] MEDS: Aspirin Enteric Coated 81 MG Tablet PO SCH (08:51)
[2021-03-09] MEDS: Metoprolol XL (24 HR) Succ 50 MG TAB.ER.24H PO SCH (08:52)
[2021-03-09] MEDS: Ascorbic Acid 500 MG TABLET PO SCH (08:52)
[2021-03-09] MEDS: Furosemide 40 MG TABLET PO SCH ×2 (08:52→16:43)
[2021-03-09] MEDS: *HR* Glimepiride 4 MG TABLET PO SCH (08:52)
[2021-03-10] MEDS: *HR* OxyCODONE/APAP 10/325 TABLET PO PRN ×2 (06:12→15:43)
[2021-03-10] MEDS: *HR* Enoxaparin 40 MG/0.4 ML SYRINGE SQ SCH (06:13)
[2021-03-10] MEDS: Metoprolol XL (24 HR) Succ 50 MG TAB.ER.24H PO SCH (09:54)
[2021-03-10] MEDS: Furosemide 40 MG TABLET PO SCH (09:55)
[2021-03-10] MEDS: Spironolactone 25 MG TABLET PO SCH (09:55)
[2021-03-10] MEDS: Ascorbic Acid 500 MG TABLET PO SCH (09:55)
[2021-03-10] MEDS: Gabapentin 300 MG CAPSULE PO SCH ×3 (09:55→20:05)
[2021-03-10] MEDS: *HR* Glimepiride 4 MG TABLET PO SCH (09:55)
[2021-03-10] MEDS: Aspirin Enteric Coated 81 MG Tablet PO SCH (09:55)
[2021-03-10] MEDS: Insulin LISPRO 300 UNITS/3 ML VIAL SUBQ SCH ×4 (09:58→20:05)
[2021-03-10 15:15] LABS: Basophils # 0.1 K/mcL (0.0-0.2); Basophils % 0.9 %; Eosinophils # 0.4 K/mcL (0.0-0.6); Eosinophils % 3.5 %; Hematocrit 34.3 % (37.5-50.1); Hemoglobin 10.6 g/dL (12.9-16.9); Lymphocytes # 1.4 K/mcL (0.6-4.6); Lymphocytes % 12.7 %; Mean Corpuscular HGB Conc 30.9 g/dL (31.6-35.5); Monocytes # 1.3 K/mcL (0.0-1.3); Monocytes % 11.2 %; Platelet Count 320 K/mcL (140-400); Red Blood Count 3.65 M/mcL (4.19-5.50); Red Cell Distribution Width 15.3 % (11.5-14.5); Segmented Neutrophils % 70.7 %; White Blood Count 11.3 K/mcL (4.3-11.1)
[2021-03-10 15:32] LABS: Potassium 3.9 mEq/L (3.5-5.1)
[2021-03-10] MEDS: Capsaicin 0.025% 60 GM TUBE TP SCH ×2 (17:08→20:05)
[2021-03-10] MEDS: 0.9 % Sodium Chloride 1,000 ML IVC SCH (17:54)
[2021-03-11] MEDS: *HR* OxyCODONE/APAP 10/325 TABLET PO PRN ×2 (03:02→20:31)
[2021-03-11] MEDS: 0.9 % Sodium Chloride 1,000 ML IVC SCH (05:32)
[2021-03-11] MEDS: *HR* Enoxaparin 40 MG/0.4 ML SYRINGE SQ SCH (05:32)
[2021-03-11 07:29] LABS: Calcium 8.2 mg/dL (8.6-10.3); Potassium 4.1 mEq/L (3.5-5.1)
[2021-03-11] MEDS: Insulin LISPRO 300 UNITS/3 ML VIAL SUBQ SCH ×4 (08:55→20:33)
[2021-03-11] MEDS: Aspirin Enteric Coated 81 MG Tablet PO SCH (08:56)
[2021-03-11] MEDS: *HR* Glimepiride 4 MG TABLET PO SCH (08:56)
[2021-03-11] MEDS: Ascorbic Acid 500 MG TABLET PO SCH (08:56)
[2021-03-11] MEDS: Metoprolol XL (24 HR) Succ 50 MG TAB.ER.24H PO SCH (08:56)
[2021-03-11] MEDS: Gabapentin 300 MG CAPSULE PO SCH ×3 (08:56→20:31)
[2021-03-11] MEDS: Capsaicin 0.025% 60 GM TUBE TP SCH ×3 (08:57→20:35)
[2021-03-11] MEDS: Furosemide 40 MG TABLET PO SCH (17:46)
[2021-03-12] MEDS: *HR* Enoxaparin 40 MG/0.4 ML SYRINGE SQ SCH (06:28)
[2021-03-12] MEDS: Insulin LISPRO 300 UNITS/3 ML VIAL SUBQ SCH ×4 (08:58→20:40)
[2021-03-12] MEDS: Ascorbic Acid 500 MG TABLET PO SCH (09:44)
[2021-03-12] MEDS: *HR* OxyCODONE/APAP 10/325 TABLET PO PRN ×2 (09:44→20:10)
[2021-03-12] MEDS: Aspirin Enteric Coated 81 MG Tablet PO SCH (09:44)
[2021-03-12] MEDS: Furosemide 40 MG TABLET PO SCH ×2 (09:44→16:03)
[2021-03-12] MEDS: *HR* Glimepiride 4 MG TABLET PO SCH (09:44)
[2021-03-12] MEDS: Metoprolol XL (24 HR) Succ 50 MG TAB.ER.24H PO SCH (09:45)
[2021-03-12] MEDS: Spironolactone 25 MG TABLET PO SCH (09:45)
[2021-03-12] MEDS: Capsaicin 0.025% 60 GM TUBE TP SCH ×3 (09:45→20:38)
[2021-03-12] MEDS: Gabapentin 300 MG CAPSULE PO SCH ×3 (09:45→20:39)
[2021-03-12 10:04] LABS: BUN/Creatinine Ratio 18 (6-26); Blood Urea Nitrogen 24 mg/dL (8-23); Calcium 8.6 mg/dL (8.6-10.3); Carbon Dioxide 34 mEq/L (23-29); Chloride 98 mEq/L (98-107); Glucose 115 mg/dL (70-105); Osmolality,Calculated 291 (280-300); Sodium 138 mEq/L (136-145); eGFR For African Americans > 60 (> 60); eGFR For Non-African Americans 54 (> 60)
[2021-03-12] MEDS: Neosporin OINT 15 GM TUBE TP SCH (20:38)
[2021-03-13] MEDS: *HR* Enoxaparin 40 MG/0.4 ML SYRINGE SQ SCH (06:23)
[2021-03-13] MEDS: Insulin LISPRO 300 UNITS/3 ML VIAL SUBQ SCH ×4 (08:08→20:15)
[2021-03-13] MEDS: Gabapentin 300 MG CAPSULE PO SCH ×3 (08:19→20:16)
[2021-03-13] MEDS: *HR* OxyCODONE/APAP 10/325 TABLET PO PRN ×2 (08:19→20:29)
[2021-03-13] MEDS: Aspirin Enteric Coated 81 MG Tablet PO SCH (08:19)
[2021-03-13] MEDS: Ascorbic Acid 500 MG TABLET PO SCH (08:20)
[2021-03-13] MEDS: Spironolactone 25 MG TABLET PO SCH (08:20)
[2021-03-13] MEDS: *HR* Glimepiride 4 MG TABLET PO SCH (08:20)
[2021-03-13] MEDS: Furosemide 40 MG TABLET PO SCH ×2 (08:21→16:07)
[2021-03-13] MEDS: Metoprolol XL (24 HR) Succ 50 MG TAB.ER.24H PO SCH (08:24)
[2021-03-13] MEDS: Neosporin OINT 15 GM TUBE TP SCH ×2 (08:25→20:20)
[2021-03-13] MEDS: Capsaicin 0.025% 60 GM TUBE TP SCH ×3 (08:26→20:22)
[2021-03-13] MEDS ORDERED: Ondansetron 4 MG/2 ML VIAL IVP PRN (11:58)
[2021-03-14] MEDS: *HR* Enoxaparin 40 MG/0.4 ML SYRINGE SQ SCH (05:38)
[2021-03-14] MEDS: Ascorbic Acid 500 MG TABLET PO SCH (09:47)
[2021-03-14] MEDS: Spironolactone 25 MG TABLET PO SCH (09:48)
[2021-03-14] MEDS: Metoprolol XL (24 HR) Succ 50 MG TAB.ER.24H PO SCH (09:48)
[2021-03-14] MEDS: *HR* Glimepiride 4 MG TABLET PO SCH (09:48)
[2021-03-14] MEDS: Aspirin Enteric Coated 81 MG Tablet PO SCH (09:48)
[2021-03-14] MEDS: Furosemide 40 MG TABLET PO SCH ×2 (09:48→18:00)
[2021-03-14] MEDS: Gabapentin 300 MG CAPSULE PO SCH ×3 (09:48→20:16)
[2021-03-14] MEDS: Neosporin OINT 15 GM TUBE TP SCH ×2 (09:49→22:09)
[2021-03-14] MEDS: Capsaicin 0.025% 60 GM TUBE TP SCH ×3 (09:49→22:09)
[2021-03-14] MEDS: Insulin LISPRO 300 UNITS/3 ML VIAL SUBQ SCH ×4 (09:52→20:17)
[2021-03-14 15:52] LABS: Basophils % 0.5 %; Eosinophils # 0.3 K/mcL (0.0-0.6); Eosinophils % 3.6 %; Hemoglobin 10.6 g/dL (12.9-16.9); Immature Granulocytes % 0.5 % (0-4); Lymphocytes # 1.2 K/mcL (0.6-4.6); Mean Corpuscular HGB Conc 32.1 g/dL (31.6-35.5); Mean Corpuscular Hemoglobin 28.9 pg (28.0-33.3); Mean Corpuscular Volume 89.9 fL (83.0-100.0); Mean Platelet Volume 9.3 fL (9.4-12.4); Monocytes # 0.6 K/mcL (0.0-1.3); Monocytes % 7.6 %; Neutrophils # 5.9 K/mcL (1.6-8.9); Platelet Count 273 K/mcL (140-400); Red Blood Count 3.67 M/mcL (4.19-5.50); Red Cell Distribution Width 14.6 % (11.5-14.5); Segmented Neutrophils % 72.8 %; White Blood Count 8.1 K/mcL (4.3-11.1)
[2021-03-14 16:11] LABS: Albumin 3.4 g/dL (3.5-5.7); Albumin/Globulin Ratio 0.8 (1.1-2.2); Bilirubin,Total 0.4 mg/dL (0.3-1.0); Calcium 9.1 mg/dL (8.6-10.3); Globulin 4.2 g/dL (2.4-3.5); Potassium 4.5 mEq/L (3.5-5.1); Total Protein 7.6 g/dL (6.4-8.9)
[2021-03-14] MEDS: *HR* OxyCODONE/APAP 10/325 TABLET PO PRN (20:16)
[2021-03-15] MEDS ORDERED: *HR* Enoxaparin 40 MG/0.4 ML SYRINGE SQ SCH (06:00)
[2021-03-15] MEDS: Insulin LISPRO 300 UNITS/3 ML VIAL SUBQ SCH ×4 (07:52→20:02)
[2021-03-15] MEDS: *HR* Glimepiride 4 MG TABLET PO SCH (08:20)
[2021-03-15] MEDS: Metoprolol XL (24 HR) Succ 50 MG TAB.ER.24H PO SCH (08:20)
[2021-03-15] MEDS: Ascorbic Acid 500 MG TABLET PO SCH (08:20)
[2021-03-15] MEDS: Furosemide 40 MG TABLET PO SCH ×2 (08:20→16:56)
[2021-03-15] MEDS: Aspirin Enteric Coated 81 MG Tablet PO SCH (08:20)
[2021-03-15] MEDS: Gabapentin 300 MG CAPSULE PO SCH ×3 (08:20→20:03)
[2021-03-15] MEDS: Spironolactone 25 MG TABLET PO SCH (08:21)
[2021-03-15] MEDS: Neosporin OINT 15 GM TUBE TP SCH ×2 (08:23→20:15)
[2021-03-15] MEDS: Capsaicin 0.025% 60 GM TUBE TP SCH ×3 (08:23→20:05)
[2021-03-15] MEDS: *HR* OxyCODONE/APAP 10/325 TABLET PO PRN (20:03)
[2021-03-16] MEDS: Insulin LISPRO 300 UNITS/3 ML VIAL SUBQ SCH ×4 (07:46→19:59)
[2021-03-16] MEDS: *HR* Glimepiride 4 MG TABLET PO SCH (08:32)
[2021-03-16] MEDS: Aspirin Enteric Coated 81 MG Tablet PO SCH (08:32)
[2021-03-16] MEDS: Gabapentin 300 MG CAPSULE PO SCH ×3 (08:33→20:43)
[2021-03-16] MEDS: Spironolactone 25 MG TABLET PO SCH (08:33)
[2021-03-16] MEDS: Metoprolol XL (24 HR) Succ 50 MG TAB.ER.24H PO SCH (08:33)
[2021-03-16] MEDS: Furosemide 40 MG TABLET PO SCH ×2 (08:33→17:04)
[2021-03-16] MEDS: Ascorbic Acid 500 MG TABLET PO SCH (08:33)
[2021-03-16] MEDS: Capsaicin 0.025% 60 GM TUBE TP SCH ×3 (08:33→20:45)
[2021-03-16] MEDS: Neosporin OINT 15 GM TUBE TP SCH ×2 (08:33→20:55)
[2021-03-16] MEDS: *HR* OxyCODONE/APAP 10/325 TABLET PO PRN (15:49)
[2021-03-17 06:57] LABS: Hematocrit 33.3 % (37.5-50.1); Hemoglobin 10.8 g/dL (12.9-16.9); Mean Corpuscular HGB Conc 32.4 g/dL (31.6-35.5); Mean Corpuscular Hemoglobin 29.2 pg (28.0-33.3); Mean Platelet Volume 9.7 fL (9.4-12.4); Platelet Count 252 K/mcL (140-400); White Blood Count 8.3 K/mcL (4.3-11.1)
[2021-03-17 07:24] LABS: Calcium 9.3 mg/dL (8.6-10.3); Magnesium 1.9 mg/dL (1.6-2.6); Potassium 3.7 mEq/L (3.5-5.1)
[2021-03-17] MEDS: Insulin LISPRO 300 UNITS/3 ML VIAL SUBQ SCH ×4 (07:32→22:12)
[2021-03-17] MEDS: Aspirin Enteric Coated 81 MG Tablet PO SCH (08:11)
[2021-03-17] MEDS: Furosemide 40 MG TABLET PO SCH (08:11)
[2021-03-17] MEDS: Spironolactone 25 MG TABLET PO SCH (08:11)
[2021-03-17] MEDS: Ascorbic Acid 500 MG TABLET PO SCH (08:11)
[2021-03-17] MEDS: Gabapentin 300 MG CAPSULE PO SCH ×3 (08:11→19:56)
[2021-03-17] MEDS: *HR* Glimepiride 4 MG TABLET PO SCH (08:11)
[2021-03-17] MEDS: Metoprolol XL (24 HR) Succ 50 MG TAB.ER.24H PO SCH (08:11)
[2021-03-17] MEDS: Neosporin OINT 15 GM TUBE TP SCH (08:12)
[2021-03-17] MEDS: Capsaicin 0.025% 60 GM TUBE TP SCH ×2 (08:12→15:28)
[2021-03-17] MEDS: *HR* OxyCODONE/APAP 10/325 TABLET PO PRN (18:37)
[2021-03-18] MEDS: Neosporin OINT 15 GM TUBE TP SCH ×3 (01:13→22:28)
[2021-03-18] MEDS: Capsaicin 0.025% 60 GM TUBE TP SCH ×4 (01:14→22:28)
[2021-03-18] MEDS: Insulin LISPRO 300 UNITS/3 ML VIAL SUBQ SCH ×4 (07:30→22:28)
[2021-03-18] MEDS: Ascorbic Acid 500 MG TABLET PO SCH (08:10)
[2021-03-18] MEDS: Gabapentin 300 MG CAPSULE PO SCH ×3 (08:10→20:01)
[2021-03-18] MEDS: Metoprolol XL (24 HR) Succ 50 MG TAB.ER.24H PO SCH (08:11)
[2021-03-18] MEDS: Furosemide 40 MG TABLET PO SCH (08:11)
[2021-03-18] MEDS: *HR* Glimepiride 4 MG TABLET PO SCH (08:11)
[2021-03-18] MEDS: Aspirin Enteric Coated 81 MG Tablet PO SCH (08:11)
[2021-03-18] MEDS: Spironolactone 25 MG TABLET PO SCH (08:11)
[2021-03-18 08:52] LABS: Calcium 8.8 mg/dL (8.6-10.3); Potassium 3.7 mEq/L (3.5-5.1)
[2021-03-18] MEDS: *HR* OxyCODONE/APAP 10/325 TABLET PO PRN (16:55)
[2021-03-18 19:07] VITALS: RESP 18
[2021-03-19 06:35] VITALS: BP 101/57; PULSE 87; TEMP 98.8; O2SAT 94
[2021-03-19 07:39] LABS: Calcium 8.6 mg/dL (8.6-10.3); Potassium 3.9 mEq/L (3.5-5.1)
[2021-03-19] MEDS ORDERED: Furosemide 40 MG TABLET PO SCH (09:00)
[2021-03-19] MEDS: Ascorbic Acid 500 MG TABLET PO SCH (10:53)
[2021-03-19] MEDS: Gabapentin 300 MG CAPSULE PO SCH (10:53)
[2021-03-19] MEDS: Spironolactone 25 MG TABLET PO SCH (10:56)
[2021-03-19] MEDS: *HR* OxyCODONE/APAP 10/325 TABLET PO PRN (10:56)
[2021-03-19] MEDS: Metoprolol XL (24 HR) Succ 50 MG TAB.ER.24H PO SCH (10:57)
[2021-03-19] MEDS: Aspirin Enteric Coated 81 MG Tablet PO SCH (10:57)
[2021-03-19] MEDS: Neosporin OINT 15 GM TUBE TP SCH (10:58)
[2021-03-19] MEDS: *HR* Glimepiride 4 MG TABLET PO SCH (10:58)
[2021-03-19] MEDS: Capsaicin 0.025% 60 GM TUBE TP SCH (10:58)
[2021-03-19] MEDS: Insulin LISPRO 300 UNITS/3 ML VIAL SUBQ SCH ×2 (10:58→11:03)
== END 2021-03-19 14:37 | disposition home health service (06) | DRG 872 ==
LOC: INPPIK 22:35
PROVIDERS: ADMIT Internal Medicine; ATTEND Internal Medicine